=== PATIENT | female | born 2005 | race American Indian/Alaskan Native ===

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

== ENCOUNTER 2023-07-18 06:38 | Emergency (ER) | payer MEDICAID ==
[2023-07-18] MEDS ORDERED: Sodium Chloride 0.9% 10 ML Syringe FLUSH PRN (06:48)
[2023-07-18 07:03] LABS: BASOPHILS PERCENT AUTO 0.2 % (0.0-1.0); EOSINOPHILS PERCENT AUTO 2.8 % (1.0-3.0); HEMATOCRIT 38.8 % (37.0-47.0); HEMOGLOBIN 12.8 g/dL (12.0-16.0); LYMPHOCYTES PERCENT AUTO 28.6 % (20.5-50.1); MEAN CORPUSCULAR HEMOGLOBIN 30.3 pg (27.0-34.0); MEAN CORPUSCULAR VOLUME 91.7 fL (80-100); MONOCYTES PERCENT AUTO 6.9 % (2-8); NEUTROPHILS PERCENT AUTO 61.5 % (42.2-75.2); PLATELET COUNT,PLT 361 10^3/uL (150-450); RED BLOOD CELL COUNT 4.23 10^6/uL (4.2-5.4); WHITE BLOOD CELL COUNT,WBC 9.4 10^3/uL (5.0-10.0)
[2023-07-18 07:23] LABS: ALBUMIN 2.9 g/dL (3.4-5.0); ANION GAP 13.8 mEq/L (7-13); BILIRUBIN TOTAL 0.2 mg/dL (0.2-1.0); BUN/CREATININE RATIO 13.3 (No establ ref range); CALCIUM 8.6 mg/dL (8.5-10.1); CREATININE 0.6 mg/dL (0.55-1.02); EST CRCL DRUG DOSING (CG) 129.15 mL/min; POTASSIUM,K 3.8 mmol/L (3.5-5.1)
[2023-07-18 07:25] LABS: A/G RATIO 0.71
== END 2023-07-18 09:28 | disposition home or self-care (01) ==
LOC: DL.ED 06:38
DX: O20.8 Other hemorrhage in early pregnancy (principal); Z3A.13 13 weeks gestation of pregnancy
CPT/HCPCS: 36415; 76815; 80053; 84702; 85025; 86900; 86901; 87081; 87430; 99284

== ENCOUNTER 2024-01-15 03:34 | Inpatient (IN) | payer BC ==
[2024-01-15] MEDS: Lactated Ringers 1,000 ML IV SCH (04:15)
[2024-01-15 04:18] LABS: HEMOGLOBIN 12.1 g/dL (12.0-16.0); MEAN CORPUSCULAR HEMOGLOBIN 31.1 pg (27.0-34.0); MEAN CORPUSCULAR HGB CONC 32.7 g/dL (33.0-35.0); MEAN CORPUSCULAR VOLUME 95.1 fL (80-100); RED BLOOD CELL COUNT 3.89 10^6/uL (4.2-5.4); WHITE BLOOD CELL COUNT,WBC 12.4 10^3/uL (5.0-10.0)
[2024-01-15] MEDS ORDERED: fentaNYL 100 MCG/2 ML SDV ONE ×2 (04:39→10:05)
[2024-01-15] MEDS ORDERED: Bupivacaine 0.25% 10 ML SDV ONE ×2 (04:39→10:05)
[2024-01-15] MEDS ORDERED: ePHEDrine 50 MG/ML SDV IVPUSH PRN (05:07)
[2024-01-15] MEDS ORDERED: Phenylephrine HCl In 0.9% NaCl 1 MG/10 ML Syringe IVPUSH PRN (05:07)
[2024-01-15] MEDS ORDERED: Ropivacaine 200 MG in Premix Bag 1 BAG EPIDUR SCH (05:15)
[2024-01-15] MEDS ORDERED: Carboprost Tromethamine 250 MCG/1 ML Amp IM PRN (08:36)
[2024-01-15] MEDS ORDERED: Methylergonovine 0.2 MG/1 ML Amp IM PRN (08:36)
[2024-01-15] MEDS ORDERED: Sodium Chloride 0.9% 10 ML Syringe FLUSH PRN ×2 (08:36→15:22)
[2024-01-15] MEDS ORDERED: Misoprostol 400 MCG (4 X 100 MCG TAB) RECTAL PRN (08:36)
[2024-01-15] MEDS ORDERED: Ondansetron 4 MG/2 ML SDV IVPUSH PRN (08:36)
[2024-01-15] MEDS ORDERED: Lactated Ringers 1,000 ML IV SCH (08:45)
[2024-01-15] MEDS: Oxytocin/Normal Saline 30 UNIT/500 ML BAG IV SCH (11:27)
[2024-01-15] MEDS: Acetaminophen 325 MG Tab PO PRN (11:38)
[2024-01-15] MEDS: Tranexamic Acid 1,000 MG in Sodium Chloride 0.9% 100 ML IV PRN (14:25)
[2024-01-15] MEDS: Ibuprofen 800 MG Tab PO PRN (15:04)
[2024-01-15] MEDS ORDERED: Simethicone 80 MG Tab.Chew PO PRN (15:22)
[2024-01-15] MEDS ORDERED: Oxytocin 10 Units/1 ML SDV IM PRN (15:22)
[2024-01-15] MEDS: Witch Hazel Medicated Pads 100/Jar TOP PRN (16:09)
[2024-01-15] MEDS: Benzocaine/Menthol 20%-0.5% Spray 78 GM Cannister TOP PRN (16:09)
[2024-01-15] MEDS ORDERED: Lidocaine 2% with EPINEPHrine 1:200,000 20 ML SDV ONE (16:36)
[2024-01-15] MEDS: Lidocaine 1% 30 ML SDV INJECT ONE (16:42)
[2024-01-15] MEDS: Benzocaine/Menthol 20%-0.5% Spray 78 GM Cannister ONE (16:43)
[2024-01-15] MEDS: Witch Hazel Medicated Pads 100/Jar TOP ONE (16:44)
[2024-01-15] MEDS: Ibuprofen 800 MG Tab ONE (16:44)
[2024-01-15] MEDS: Docusate Sodium 100 MG Cap PO PRN (21:15)
[2024-01-15] MEDS: Acetaminophen/oxyCODONE 325-5 MG Tab PO PRN (21:15)
[2024-01-16 03:14] LABS: HEMATOCRIT 28.2 % (37.0-47.0); HEMOGLOBIN 9.3 g/dL (12.0-16.0); MEAN CORPUSCULAR HEMOGLOBIN 31.4 pg (27.0-34.0); MEAN CORPUSCULAR VOLUME 95.3 fL (80-100); RED BLOOD CELL COUNT 2.96 10^6/uL (4.2-5.4); WHITE BLOOD CELL COUNT,WBC 12.2 10^3/uL (5.0-10.0)
[2024-01-16] MEDS: Prenatal Multivitamin with Calcium/Folic Acid/Iron Tab PO SCH (09:53)
[2024-01-16] MEDS: Ferrous Sulfate 325 MG Tab PO SCH (10:48)
[2024-01-16] MEDS: Acetaminophen 325 MG Tab PO PRN (16:01)
[2024-01-17 06:27] LABS: HEMOGLOBIN 9.8 g/dL (12.0-16.0)
== END 2024-01-17 14:28 | disposition home or self-care (01) | DRG 560 ==
LOC: DL.OBCHECK 03:34 → DL.OB 04:12 → OBSVTOIN 14:09 → DL.OB 14:09
PROVIDERS: ADMIT Family Medicine; ATTEND Family Medicine
PROC: 0KQM0ZZ Repair Perineum Muscle, Open Approach (ICD-10-PCS; 2024-01-15)
PROC: 3E0R3BZ Introduction of Anesthetic Agent into Spinal Canal, Percutaneous Approach (ICD-10-PCS; 2024-01-15)
PROC: 00HU33Z Insertion of Infusion Device into Spinal Canal, Percutaneous Approach (ICD-10-PCS; 2024-01-15)
PROC: 10907ZC Drainage of Amniotic Fluid, Therapeutic from Products of Conception, Via Natural or Artificial Opening (ICD-10-PCS; 2024-01-15)
PROC: 30233N1 Transfusion of Nonautologous Red Blood Cells into Peripheral Vein, Percutaneous Approach (ICD-10-PCS; 2024-01-15)
PROC: 10E0XZZ Delivery of Products of Conception, External Approach (ICD-10-PCS; principal; 2024-01-15 17:00)
DX: O99.02 Anemia complicating childbirth (principal); Z37.0 Single live birth; D62 Acute posthemorrhagic anemia; O70.1 Second degree perineal laceration during delivery; O77.0 Labor and delivery complicated by meconium in amniotic fluid; D50.0 Iron deficiency anemia secondary to blood loss (chronic); Z3A.39 39 weeks gestation of pregnancy
CPT/HCPCS: 00940; 01967; 36415; 36430; 51702; 59409; 85014; 85018; 85027; 86850; 86900; 86901; 86920; 86922; A9270-GY; J2590; J3490; J7120; P9016